=== PATIENT | male | born 1965 | race Caucasian/White ===

== ENCOUNTER 2016-12-19 02:44 | Day surgery (SDC) | payer OTHER ==
[~2016-12-19] VITALS: Ht 172.7 cm; Wt 88.0 kg
[2016-12-19] MEDS ORDERED: Sodium Chloride LOK Flush 10 mL Syringe IV PRN (06:00)
[2016-12-19] MEDS ORDERED: 0.9% Sodium Chloride 1,000 ML IV SCH (06:00)
[2016-12-19] MEDS ORDERED: fentaNYL-PF 50 mCg/mL 2 mL Inj IVPUSH PRN (06:00)
[2016-12-19 11:00] VITALS: BP 130/85; PULSE 64; RESP 16; O2SAT 97
[2016-12-19 11:48] VITALS: BP 129/82; PULSE 72; RESP 16; O2SAT 96
[2016-12-19 11:59] VITALS: BP 127/85; PULSE 67; RESP 16; O2SAT 95
--- NOTE | 2016-12-19 23:17 | ENDO ---
[address] [address] ENDOSCOPY PROCEDURE PATIENT: NISREEN SUTTON : 1965 MR#: [id number] ADMIT: 12/19/2016 JOB ID: [id number] DATE OF PROCEDURE: 12/19/2016 PROCEDURE: Colonoscopy. INDICATION: Screening. Patient's ASA classification is I. Mallampati score is 2. MEDICATIONS: 1. Versed 5 mg. 2. Fentanyl 100 mcg. INSTRUMENT USED: PCF-H180AL. PREPARATION QUALITY: Good. PROCEDURE DETAILS: After informed consent was obtained, the patient was brought to the GI suite, where he was placed on oxygen via nasal cannula and monitored with continuous pulse oximeter, telemetry, and blood pressure monitoring. A time-out was performed. Then, he was placed in the left lateral decubitus position and medications were administered for sedation. Digital rectal exam with palpation of the prostate was performed which was unremarkable. The colonoscope was then inserted into the rectum and advanced under direct visualization to the cecum, which was identified by the presence of the ileocecal valve and appendiceal orifice. Once the cecum was reached, colonoscope was withdrawn back into the rectum as the mucosa and lumen were examined. In the rectum, retroflexion was performed. Following retroflexion, remaining air in the rectum was suctioned and procedure was completed. FINDINGS: In the transverse colon, there was a diminutive polyp that was removed with cold biopsy forceps, otherwise, normal exam from rectum to cecum. IMPRESSION: Transverse colon polyp. RECOMMENDATIONS: Repeat colonoscopy pending polyp pathology results. COMPLICATIONS: None. ESTIMATED BLOOD LOSS: Less than 5 mL.
--- NOTE | 2016-12-21 10:46 | PATH ---
SURGICAL PATHOLOGY Attending Physician:Frannie Smart CASE STATUS: Signed Out PATIENT NAME: NISREEN SUTTON PID: [id number] : 1965 DATE COLLECTED:12/19/2016 23:42 SPECIMEN: Colon, Polyp CLINICAL HISTORY: 1). TRANSVERSE COLON POLYP FINAL DIAGNOSIS: 1.TRANSVERSE COLON POLYP: HYPERPLASTIC POLYP. ICD10 D12.6 GROSS DESCRIPTION: The specimen is received in one formalin filled container labeled with the patient's name, sublabeled "transverse colon polyp" and consists of 0.3 x 0.2 x 0.2 CM portion of tissue which is entirely submitted in one cassette. 12/20/2016 DAC MICRO DESCRIPTION: See diagnosis. ICD-9 CODES: CPT CODES: 1: 68481 Electronically Signed Out Nakul Mcmillan MD [facility], [place] [address] Technical component performed at [facility], [facility] [address], [address]
== END 2016-12-19 23:59 | disposition home or self-care (01) ==
LOC: END 02:44
PROVIDERS: ATTEND Internal Medicine Gastroenterology
DX: Z12.11 Encounter for screening for malignant neoplasm of colon (principal); K63.5 Polyp of colon; R03.0 Elevated blood-pressure reading, without diagnosis of hypertension; M54.5 Low back pain; Z87.891 Personal history of nicotine dependence
CPT/HCPCS: 45380; G0500; J2250; J3010; J7030